=== PATIENT | male | born 1945 | race Caucasian/White ===

== ENCOUNTER 2016-05-15 14:26 | Inpatient (IN) | payer OTHER, MEDICARE ==
[~2016-05-15] VITALS: Ht 177.8 cm; Wt 163.7 kg
[~2016-05-15 14:26] MED LIST: ASPIRIN EC325 M1 PO; CATAPRES0.1 MG PO; FISH OIL CONC1 EACH PO; HYDROCHLOROTHIA25 MG PO; LASIX40 MG PO; METOPROLOL TART50 MG PO; MICRO-K,K-DUR,10 MEQ PO; NORVASC10 MG PO; PREVACID30 MG PO; SIMVASTATIN80 MG PO; ZESTRIL,PRINIVI40 MG PO; ZOLOFT50 MG PO
[2016-05-15 15:04] LABS: EOSINOPHIL (%) 1.5 % (0-5); EOSINOPHIL COUNT 0.2 K/uL (0-0.3); HEMATOCRIT 38.1 % (38.0-50.0); IMMATURE GRANULOCYTE (%) 1.1 % (0.0-0.7); IMMATURE GRANULOCYTE COUNT 1.2 K/uL; LYMPHOCYTE COUNT 1.2 K/uL (1.0-2.8); MCHC 35.4 G/DL (30.0-36.0); MCV 84.7 FL (86-99); MEAN PLAT.VOLUME 7.9 uM^3 (9.0-12.4); MONOCYTE (%) 4.7 % (3-12); MONOCYTE COUNT 0.5 K/uL (0-0.8); NEUTROPHIL (%) 81.9 % (45-76); NEUTROPHIL COUNT 9.3 K/uL (1.8-6.4); PLATELET COUNT 179 K/uL (156-360); RBC DIS.WIDTH-CV 13.3 % (11.8-14.6); RBC DIS.WIDTH-SD 39.8 % (39-53); WHITE BLOOD COUNT 11.4 K/uL (4.1-10.2)
[2016-05-15 15:20] LABS: PROTHROMBIN TIME 10.3 (9.2-11.2)
[2016-05-15 15:21] LABS: CHLORIDE 100 mEq/L (99-109); POTASSIUM 4.6 mEq/L (3.7-5.4); SODIUM 137 mEq/L (136-147)
[2016-05-15 15:25] LABS: ANION GAP 13 MEQ/L (2-14)
[2016-05-15 15:26] LABS: TOTAL BILIRUBIN 0.8 mg/dL (0.0-1.0)
[2016-05-15 15:27] LABS: ALKALINE PHOSPHATASE 115 IU/L (3-129); GFR ESTIMATE (CALCULATED) 46 mL/min/
[2016-05-15 15:28] LABS: UREA NITROGEN (BUN) 22 mg/dL (9-23)
[2016-05-15 15:31] LABS: TROP-I INTERPRETATION NEGATIVE; TROPONIN-I < 0.01 ng/mL (0.0-0.30)
[2016-05-15 15:49] LABS: GLUCOSE 473 mg/dL (70-99)
[2016-05-15] MEDS ORDERED: LIPITOR40 MG PO (17:55)
[2016-05-15] MEDS ORDERED: LOW DOSE ASPIRI81 M1 PO (17:56)
[2016-05-15] MEDS ORDERED: PANTOPRAZOLE SO40 MG PO (17:57)
[2016-05-15] MEDS ORDERED: POTASSIUM CHLO10 MEQ PO (17:58)
[2016-05-15] MEDS ORDERED: LOPRESSOR50 MG PO (17:59)
[2016-05-15] MEDS ORDERED: ZOLOFT100 MG PO (18:00)
[2016-05-15] MEDS ORDERED: ZESTRIL40 MG PO (18:01)
[2016-05-15] MEDS ORDERED: HYDROCHLOROTHIA25 MG PO (18:02)
[2016-05-15] MEDS ORDERED: NORVASC10 MG PO (18:04)
[2016-05-15] MEDS ORDERED: ZYLOPRIM300 MG PO (18:05)
[2016-05-15] MEDS ORDERED: VITAMIN D-32000 UNI2 PO (18:06)
[2016-05-15] MEDS ORDERED: IRON325 M1 PO (18:07)
[2016-05-15] MEDS ORDERED: GLUCOSAMINE-CH480 ML PO (18:09)
[2016-05-15 18:42] LABS: POINT-OF-CARE METER ID UU14100415
[2016-05-15] MEDS ORDERED: LANTUS 10100 UNITS/ SC (19:17)
[2016-05-15 19:40] LABS: SAMPLE HEMOLYSIS CHECK 0; SAMPLE ICTERIC CHECK 0; SAMPLE LIPEMIA CHECK 0
[2016-05-15 19:46] LABS: HDL CHOLESTEROL 41 MG/DL (Desirable>=40); LDL CHOLESTEROL 69 mg/dL (Desirable<100); NON-HDL CHOLESTEROL 92 mg/dL (Desirable<160); TOTAL CHOLESTEROL 133 mg/dL (Desirable<200); TRIGLYCERIDES 113 MG/DL (Normal: <150)
[2016-05-15 21:32] LABS: Estimated Average Glucose 369 mg/dL (70-123); HEMOGLOBIN A1c (GLYCOHEMOGLOB) 14.5 % HGB (Below 5.7)
[2016-05-15 21:52] VITALS: BP 143/80
[2016-05-15 22:15] LABS: POINT-OF-CARE METER ID UU14149398
[2016-05-16 00:01] VITALS: BP 162/76
[2016-05-16 03:45] VITALS: BP 158/74
[2016-05-16 04:08] LABS: POINT-OF-CARE METER ID UU14149398
[2016-05-16 05:54] LABS: HEMATOCRIT 35.4 % (38.0-50.0); MCH 29.2 PG (29.0-34.0); MCHC 33.9 G/DL (30.0-36.0); MCV 86.1 FL (86-99); MEAN PLAT.VOLUME 8.7 uM^3 (9.0-12.4); PLATELET COUNT 138 K/uL (156-360); RBC DIS.WIDTH-CV 13.6 % (11.8-14.6); RBC DIS.WIDTH-SD 42.6 % (39-53); RED BLOOD COUNT 4.11 M/uL (4.00-5.50); WHITE BLOOD COUNT 10.3 K/uL (4.1-10.2)
[2016-05-16 06:00] LABS: ALKALINE PHOSPHATASE 86 IU/L (3-129); ANION GAP 10 MEQ/L (2-14); CHLORIDE 102 MEQ/L (99-109); GFR ESTIMATE (CALCULATED) > 59 mL/min/; GLUCOSE 278 mg/dL (70-99); POTASSIUM 4.1 MEQ/L (3.7-5.4); SAMPLE HEMOLYSIS CHECK 0; SAMPLE ICTERIC CHECK 0; SAMPLE LIPEMIA CHECK 0; SODIUM 136 MEQ/L (136-147); TOTAL BILIRUBIN 0.7 MG/DL (0.0-1.0); UREA NITROGEN (BUN) 21 mg/dL (9-23)
[2016-05-16 07:53] VITALS: BP 165/85
[2016-05-16 08:54] LABS: POINT-OF-CARE METER ID UU14149398
[2016-05-16 12:54] LABS: POINT-OF-CARE METER ID UU14149398
[2016-05-16 16:16] VITALS: BP 159/80
[2016-05-16 17:55] LABS: POINT-OF-CARE METER ID UU14149398
[2016-05-16 19:30] VITALS: BP 141/83
[2016-05-16 21:01] LABS: POINT-OF-CARE METER ID UU14149398
[2016-05-16 23:50] VITALS: BP 176/84
[2016-05-17 03:22] LABS: POINT-OF-CARE METER ID UU14149398
[2016-05-17 03:40] VITALS: BP 173/82
[2016-05-17 06:13] LABS: HEMATOCRIT 35.6 % (38.0-50.0); MCH 28.4 PG (29.0-34.0); MCHC 33.1 G/DL (30.0-36.0); MCV 85.6 FL (86-99); MEAN PLAT.VOLUME 8.4 uM^3 (9.0-12.4); PLATELET COUNT 135 K/uL (156-360); RBC DIS.WIDTH-CV 13.4 % (11.8-14.6); RBC DIS.WIDTH-SD 41.5 % (39-53); RED BLOOD COUNT 4.16 M/uL (4.00-5.50); WHITE BLOOD COUNT 9.7 K/uL (4.1-10.2)
[2016-05-17 06:36] LABS: ANION GAP 9 MEQ/L (2-14); CHLORIDE 103 MEQ/L (99-109); GFR ESTIMATE (CALCULATED) > 59 mL/min/; GLUCOSE 151 mg/dL (70-99); POTASSIUM 3.8 MEQ/L (3.7-5.4); SAMPLE HEMOLYSIS CHECK 0; SAMPLE ICTERIC CHECK 0; SAMPLE LIPEMIA CHECK 0; SODIUM 139 MEQ/L (136-147); UREA NITROGEN (BUN) 19 mg/dL (9-23)
[2016-05-17 08:47] VITALS: BP 157/92
[2016-05-17 08:57] LABS: POINT-OF-CARE METER ID UU14149398; POINT-OF-CARE USER ID 606021404
[2016-05-17 11:32] VITALS: BP 129/64
[2016-05-17 12:23] LABS: POINT-OF-CARE METER ID UU13113807; POINT-OF-CARE USER ID 606021404
[2016-05-17 17:07] LABS: POINT-OF-CARE METER ID UU13113807; POINT-OF-CARE USER ID 606021404
[2016-05-17 20:02] VITALS: BP 151/77
[2016-05-17 21:09] LABS: POINT-OF-CARE METER ID UU14149398
[2016-05-17 23:55] VITALS: BP 155/74
[2016-05-18 03:06] LABS: POINT-OF-CARE METER ID UU14149398
[2016-05-18 03:34] VITALS: BP 139/74
[2016-05-18 05:58] LABS: HEMATOCRIT 35.3 % (38.0-50.0); MCH 28.1 PG (29.0-34.0); MCHC 32.9 G/DL (30.0-36.0); MCV 85.5 FL (86-99); MEAN PLAT.VOLUME 8.6 uM^3 (9.0-12.4); PLATELET COUNT 139 K/uL (156-360); RBC DIS.WIDTH-CV 13.4 % (11.8-14.6); RBC DIS.WIDTH-SD 41.4 % (39-53); RED BLOOD COUNT 4.13 M/uL (4.00-5.50); WHITE BLOOD COUNT 8.9 K/uL (4.1-10.2)
[2016-05-18 06:24] LABS: ANION GAP 8 MEQ/L (2-14); CHLORIDE 105 MEQ/L (99-109); GFR ESTIMATE (CALCULATED) > 59 mL/min/; GLUCOSE 147 mg/dL (70-99); POTASSIUM 3.8 MEQ/L (3.7-5.4); SAMPLE HEMOLYSIS CHECK 0; SAMPLE ICTERIC CHECK 0; SAMPLE LIPEMIA CHECK 0; SODIUM 138 MEQ/L (136-147); UREA NITROGEN (BUN) 18 mg/dL (9-23)
[2016-05-18 09:16] LABS: POINT-OF-CARE METER ID UU14149398; POINT-OF-CARE USER ID 606021404
[2016-05-18 11:57] LABS: POINT-OF-CARE METER ID UU14149398
[2016-05-18 11:59] VITALS: BP 161/76
[2016-05-18 16:00] VITALS: BP 145/75
[2016-05-18 16:53] LABS: POINT-OF-CARE METER ID UU14149398; POINT-OF-CARE USER ID 606021404
[2016-05-18 19:57] VITALS: BP 139/71
[2016-05-18 22:21] LABS: POINT-OF-CARE METER ID UU14149398
[2016-05-19] VITALS (7 sets, daily range): BP systolic 148–187; BP diastolic 79–96
[2016-05-19 03:23] LABS: POINT-OF-CARE METER ID UU13113807
[2016-05-19 07:26] LABS: EOSINOPHIL COUNT 0.1 K/uL (0-0.3); HEMATOCRIT 36.4 % (38.0-50.0); IMMATURE GRANULOCYTE (%) 1.7 % (0.0-0.7); IMMATURE GRANULOCYTE COUNT 0.2 K/uL; LYMPHOCYTE COUNT 1.6 K/uL (1.0-2.8); MCH 28.5 PG (29.0-34.0); MCV 86.5 FL (86-99); MEAN PLAT.VOLUME 8.3 uM^3 (9.0-12.4); MONOCYTE (%) 6.7 % (3-12); MONOCYTE COUNT 0.6 K/uL (0-0.8); NEUTROPHIL (%) 72.7 % (45-76); NEUTROPHIL COUNT 6.7 K/uL (1.8-6.4); PLATELET COUNT 124 K/uL (156-360); RBC DIS.WIDTH-CV 13.5 % (11.8-14.6); RBC DIS.WIDTH-SD 42.1 % (39-53); RED BLOOD COUNT 4.21 M/uL (4.00-5.50); WHITE BLOOD COUNT 9.2 K/uL (4.1-10.2)
[2016-05-19 07:51] LABS: ANION GAP 8 MEQ/L (2-14); CHLORIDE 106 MEQ/L (99-109); GFR ESTIMATE (CALCULATED) 54 mL/min/; GLUCOSE 152 mg/dL (70-99); POTASSIUM 4.2 MEQ/L (3.7-5.4); SAMPLE HEMOLYSIS CHECK 0; SAMPLE ICTERIC CHECK 0; SAMPLE LIPEMIA CHECK 0; SODIUM 141 MEQ/L (136-147); UREA NITROGEN (BUN) 20 mg/dL (9-23)
[2016-05-19 08:23] LABS: POINT-OF-CARE METER ID UU13113807
[2016-05-19 12:49] LABS: POINT-OF-CARE METER ID UU13113807
[2016-05-19 16:20] LABS: POINT-OF-CARE METER ID UU13113807
[2016-05-19 22:08] LABS: POINT-OF-CARE METER ID UU13113807
[2016-05-20 03:32] LABS: POINT-OF-CARE METER ID UU13113807
[2016-05-20 04:20] VITALS: BP 146/74
[2016-05-20 06:40] LABS: ANION GAP 8 MEQ/L (2-14); CHLORIDE 105 MEQ/L (99-109); GFR ESTIMATE (CALCULATED) > 59 mL/min/; GLUCOSE 162 mg/dL (70-99); POTASSIUM 3.8 MEQ/L (3.7-5.4); SAMPLE HEMOLYSIS CHECK 0; SAMPLE ICTERIC CHECK 0; SAMPLE LIPEMIA CHECK 0; SODIUM 140 MEQ/L (136-147); UREA NITROGEN (BUN) 17 mg/dL (9-23)
[2016-05-20 08:36] VITALS: BP 179/87
[2016-05-20 08:46] LABS: POINT-OF-CARE METER ID UU13113807; POINT-OF-CARE USER ID 606021404
[2016-05-20 11:15] VITALS: BP 136/72
[2016-05-20 12:17] LABS: POINT-OF-CARE METER ID UU13113807; POINT-OF-CARE USER ID 606021404
[2016-05-20 16:31] VITALS: BP 156/74
[2016-05-20 16:43] LABS: POINT-OF-CARE METER ID UU13113807; POINT-OF-CARE USER ID 606021404
[2016-05-20 20:43] VITALS: BP 178/80
[2016-05-20 21:49] LABS: POINT-OF-CARE METER ID UU13113807
[2016-05-20 23:13] VITALS: BP 159/72
[2016-05-21 03:25] LABS: POINT-OF-CARE METER ID UU13113807
[2016-05-21 04:03] VITALS: BP 149/74
[2016-05-21 07:00] VITALS: BP 174/87
[2016-05-21 08:05] LABS: POINT-OF-CARE METER ID UU13113807
[2016-05-21 11:39] VITALS: BP 141/74
[2016-05-21 12:06] LABS: POINT-OF-CARE METER ID UU13113807
[2016-05-21] MEDS ORDERED: CLONIDINE HCL0.2 MG PO (13:21)
[2016-05-21 15:32] VITALS: BP 147/78
== END 2016-05-21 16:00 | DRG 64 ==
LOC: EME 14:26 → 4SOUTH 18:09 → EDOF 18:09 → 4SOUTH 21:37
PROVIDERS: Emergency Medicine; Hospitalist; Internal Medicine; Physician Assistant
DX: I63.9 Cerebral infarction, unspecified (principal); I62.1 Nontraumatic extradural hemorrhage; N17.9 Acute kidney failure, unspecified; G81.91 Hemiplegia, unspecified affecting right dominant side; Z68.43 Body mass index [BMI] 50.0-59.9, adult; F33.9 Major depressive disorder, recurrent, unspecified; E66.01 Morbid (severe) obesity due to excess calories; I51.7 Cardiomegaly; I25.10 Atherosclerotic heart disease of native coronary artery without angina pectoris; I10 Essential (primary) hypertension; E78.00 Pure hypercholesterolemia, unspecified; E11.65 Type 2 diabetes mellitus with hyperglycemia; I89.0 Lymphedema, not elsewhere classified; I67.2 Cerebral atherosclerosis; I65.22 Occlusion and stenosis of left carotid artery; J39.2 Other diseases of pharynx; M48.06 Spinal stenosis, lumbar region; M51.16 Intervertebral disc disorders with radiculopathy, lumbar region; Z79.4 Long term (current) use of insulin; Z95.5 Presence of coronary angioplasty implant and graft; Z91.81 History of falling; Z91.013 Allergy to seafood; Z88.0 Allergy status to penicillin; Z82.49 Family history of ischemic heart disease and other diseases of the circulatory system; Z80.41 Family history of malignant neoplasm of ovary
CPT/HCPCS: 70450; 70551; 72148; 80048; 80053; 80061; 81003; 82043; 82570; 82948; 83036; 84484; 85025; 85027; 85610; 85730; 93005; 93880; 99281; 99285; G0008; J1644; J1815; J2270; J7030; J7040

== ENCOUNTER 2017-04-24 01:58 | Inpatient (IN) | payer OTHER, MEDICARE ==
[~2017-04-24] VITALS: Ht 177.8 cm; Wt 154.7 kg
[~2017-04-24 01:58] MED LIST changes: +CLONIDINE HCL0.2 MG PO; +GLUCOSAMINE-CH480 ML PO; +IRON325 M1 PO; +LANTUS 10100 UNITS/ SC; +LIPITOR40 MG PO; +LOPRESSOR50 MG PO; +LOW DOSE ASPIRI81 M1 PO; +PANTOPRAZOLE SO40 MG PO; +POTASSIUM CHLO10 MEQ PO; +VITAMIN D-32000 UNI2 PO; +ZESTRIL40 MG PO; +ZOLOFT100 MG PO; +ZYLOPRIM300 MG PO
[2017-04-24 02:40] LABS: HEMATOCRIT 40.5 % (38.0-50.0); HEMOGLOBIN 13.6 G/DL (12.5-16.6); MCH 28.9 PG (29.0-34.0); MCHC 33.6 G/DL (30.0-36.0); PLATELET COUNT 118 K/uL (156-360); RBC DIS.WIDTH-CV 13.9 % (11.8-14.6); RBC DIS.WIDTH-SD 43.6 % (39-53); RED BLOOD COUNT 4.71 M/uL (4.00-5.50); WHITE BLOOD COUNT 18.1 K/uL (4.1-10.2)
[2017-04-24 02:43] LABS: BASE EXCESS 0.7 mEq/L (-3 to +3); BICARBONATE 25.4 mEq/L (22-26); CARBOXY HGB 2.7 % (0-5); METHEMOGLOBIN 1.2 % (0-1.5); PCO2 40 mm Hg (35-45); PO2 122 mm Hg (80-100); pH 7.41 (7.35-7.45)
[2017-04-24 02:44] LABS: COMMENTS - BLOOD GASES C+; DEVICE MASKVENT; FI02 80 %; MODE NPONT; PEEP 5 CM/H20; PRES. SUPPORT 12 CM/H2O; SITE RR; TOTAL RESP RATE 20 resp/min
[2017-04-24 02:51] LABS: ALBUMIN 3.1 g/dL (3.2-4.8); CHLORIDE 102 mEq/L (99-109); POTASSIUM 3.9 mEq/L (3.7-5.4); SODIUM 139 mEq/L (136-147)
[2017-04-24 02:54] LABS: GLUCOSE 197 mg/dL (70-99); TOTAL PROTEIN 6.8 g/dL (6.4-8.3)
[2017-04-24 02:56] LABS: TOTAL BILIRUBIN 1.1 mg/dL (0.0-1.0)
[2017-04-24 02:57] LABS: ALKALINE PHOSPHATASE 121 IU/L (3-129); CREATININE 1.6 mg/dL (0.6-1.3); GFR ESTIMATE (CALCULATED) 46 mL/min/ (58.99-99999)
[2017-04-24 02:58] LABS: UREA NITROGEN (BUN) 18 mg/dL (9-23)
[2017-04-24 02:59] LABS: AST (GOT) 26 IU/L (2-34)
[2017-04-24 03:00] LABS: TROP-I INTERPRETATION POSITIVE; TROPONIN-I 1.42 ng/mL (0.0-0.30)
[2017-04-24 03:00] LABS: ALT (GPT) 24 IU/L (3-49)
[2017-04-24 09:02] LABS: INTER. NORMALIZED RATIO 1.2
[2017-04-24 09:17] LABS: TROP-I INTERPRETATION POSITIVE
[2017-04-24 09:37] LABS: TROPONIN-I 4.65 ng/mL (0.0-0.30)
[2017-04-24 09:49] LABS: HDL CHOLESTEROL 50 MG/DL (Desirable>=40); LDL CHOLESTEROL 84 mg/dL (Desirable<100); NON-HDL CHOLESTEROL 104 mg/dL (Desirable<160); TOTAL CHOLESTEROL 154 mg/dL (Desirable<200); TRIGLYCERIDES 102 MG/DL (Normal: <150)
[2017-04-24 10:15] VITALS: BP 163/104
[2017-04-24 11:15] VITALS: BP 186/89
[2017-04-24] MEDS ORDERED: FUROSEMIDE40 MG PO (12:15)
[2017-04-24] MEDS ORDERED: FLOMAX0.4 MG PO (12:15)
[2017-04-24] MEDS ORDERED: MAGNESIUM250 MG PO (12:16)
[2017-04-24] MEDS ORDERED: B-COMPLEX-VITA1 EACH PO (12:16)
[2017-04-24] MEDS ORDERED: CATAPRES0.1 MG PO (14:57)
[2017-04-24 15:38] LABS: TROP-I INTERPRETATION POSITIVE; TROPONIN-I 3.68 ng/mL (0.0-0.30)
[2017-04-24 15:55] VITALS: BP 178/81
[2017-04-24 17:58] LABS: Estimated Average Glucose 131 mg/dL (70-123); HEMOGLOBIN A1c (GLYCOHEMOGLOB) 6.2 % HGB (Below 5.7)
[2017-04-24 19:25] VITALS: BP 160/90
[2017-04-25 00:05] VITALS: BP 158/80
[2017-04-25 03:57] VITALS: BP 166/86
[2017-04-25 05:33] LABS: HEMATOCRIT 35.1 % (38.0-50.0); HEMOGLOBIN 11.7 G/DL (12.5-16.6); MCH 28.5 PG (29.0-34.0); MCHC 33.3 G/DL (30.0-36.0); MCV 85.4 FL (86-99); PLATELET COUNT 148 K/uL (156-360); RBC DIS.WIDTH-CV 13.8 % (11.8-14.6); RBC DIS.WIDTH-SD 42.8 % (39-53); RED BLOOD COUNT 4.11 M/uL (4.00-5.50); WHITE BLOOD COUNT 18.6 K/uL (4.1-10.2)
[2017-04-25 05:56] LABS: CHLORIDE 99 MEQ/L (99-109); CREATININE 1.6 MG/DL (0.6-1.3); GFR ESTIMATE (CALCULATED) 46 mL/min/ (58.99-99999); GLUCOSE 142 mg/dL (70-99); POTASSIUM 3.7 MEQ/L (3.7-5.4); SODIUM 136 MEQ/L (136-147); UREA NITROGEN (BUN) 23 mg/dL (9-23)
[2017-04-25 07:44] VITALS: BP 170/85
[2017-04-25 11:18] VITALS: BP 186/95
[2017-04-25 17:31] VITALS: BP 151/73
[2017-04-25 19:45] VITALS: BP 169/77
[2017-04-26 00:34] VITALS: BP 140/82
[2017-04-26 02:23] LABS: CHLORIDE 98 mEq/L (99-109); POTASSIUM 3.6 mEq/L (3.7-5.4); SODIUM 137 mEq/L (136-147)
[2017-04-26 02:24] LABS: GLUCOSE 149 mg/dL (70-99)
[2017-04-26 02:28] LABS: CREATININE 1.5 mg/dL (0.6-1.3); GFR ESTIMATE (CALCULATED) 49 mL/min/ (58.99-99999)
[2017-04-26 02:29] LABS: UREA NITROGEN (BUN) 26 mg/dL (9-23)
[2017-04-26 03:19] VITALS: BP 130/80
[2017-04-26 08:19] VITALS: BP 179/95
[2017-04-26 18:00] VITALS: BP 178/76
[2017-04-26 20:00] VITALS: BP 141/71
[2017-04-27 00:10] VITALS: BP 117/75
[2017-04-27 03:10] VITALS: BP 128/62
[2017-04-27 05:25] LABS: HEMOGLOBIN 9.9 G/DL (12.5-16.6); MCH 28.4 PG (29.0-34.0); MCV 86.2 FL (86-99); PLATELET COUNT 164 K/uL (156-360); RBC DIS.WIDTH-CV 13.9 % (11.8-14.6); RBC DIS.WIDTH-SD 43.7 % (39-53); RED BLOOD COUNT 3.48 M/uL (4.00-5.50); WHITE BLOOD COUNT 16.8 K/uL (4.1-10.2)
[2017-04-27 05:49] LABS: CHLORIDE 98 MEQ/L (99-109); CREATININE 1.9 MG/DL (0.6-1.3); GFR ESTIMATE (CALCULATED) 38 mL/min/ (58.99-99999); GLUCOSE 122 mg/dL (70-99); MAGNESIUM 1.9 mg/dl (1.3-2.7); POTASSIUM 3.7 MEQ/L (3.7-5.4); SODIUM 137 MEQ/L (136-147); UREA NITROGEN (BUN) 30 mg/dL (9-23)
[2017-04-27 07:17] VITALS: BP 179/75
[2017-04-27 11:36] VITALS: BP 146/70
[2017-04-27 17:12] VITALS: BP 171/77
[2017-04-27 21:15] VITALS: BP 179/81
[2017-04-28] VITALS (7 sets, daily range): BP systolic 136–161; BP diastolic 62–88
[2017-04-28 05:43] LABS: HEMATOCRIT 27.3 % (38.0-50.0); HEMOGLOBIN 9.1 G/DL (12.5-16.6); MCH 28.6 PG (29.0-34.0); MCHC 33.3 G/DL (30.0-36.0); MCV 85.8 FL (86-99); PLATELET COUNT 170 K/uL (156-360); RBC DIS.WIDTH-CV 13.9 % (11.8-14.6); RBC DIS.WIDTH-SD 43.5 % (39-53); RED BLOOD COUNT 3.18 M/uL (4.00-5.50); WHITE BLOOD COUNT 14.9 K/uL (4.1-10.2)
[2017-04-28 06:05] LABS: CHLORIDE 97 MEQ/L (99-109); CREATININE 2.1 MG/DL (0.6-1.3); GFR ESTIMATE (CALCULATED) 33 mL/min/ (58.99-99999); GLUCOSE 117 mg/dL (70-99); POTASSIUM 3.6 MEQ/L (3.7-5.4); SODIUM 135 MEQ/L (136-147); UREA NITROGEN (BUN) 34 mg/dL (9-23)
[2017-04-29 04:13] VITALS: BP 136/63
[2017-04-29 05:05] LABS: HEMATOCRIT 26.3 % (38.0-50.0); HEMOGLOBIN 8.8 G/DL (12.5-16.6); MCH 28.7 PG (29.0-34.0); MCHC 33.5 G/DL (30.0-36.0); MCV 85.7 FL (86-99); PLATELET COUNT 172 K/uL (156-360); RBC DIS.WIDTH-CV 14.3 % (11.8-14.6); RBC DIS.WIDTH-SD 43.8 % (39-53); RED BLOOD COUNT 3.07 M/uL (4.00-5.50); WHITE BLOOD COUNT 15.5 K/uL (4.1-10.2)
[2017-04-29 05:31] LABS: CHLORIDE 96 MEQ/L (99-109); CREATININE 2.1 MG/DL (0.6-1.3); GFR ESTIMATE (CALCULATED) 33 mL/min/ (58.99-99999); GLUCOSE 144 mg/dL (70-99); POTASSIUM 4.2 MEQ/L (3.7-5.4); SODIUM 133 MEQ/L (136-147); UREA NITROGEN (BUN) 33 mg/dL (9-23)
[2017-04-29 08:30] VITALS: BP 139/61
[2017-04-29 11:05] LABS: IRON 42 MCG/DL (35-150); TRANSFERRIN (TIBC) 172.2 mg/dL (215-380); TRANSFERRIN SATUR. 24 % (20-55)
[2017-04-29 11:20] LABS: FERRITIN 149 NG/ML (22-322)
[2017-04-29 12:15] VITALS: BP 136/77
[2017-04-29 16:25] VITALS: BP 149/73
[2017-04-29 19:42] VITALS: BP 134/63
[2017-04-29 23:48] VITALS: BP 130/61
[2017-04-30 04:00] VITALS: BP 141/68
[2017-04-30 06:34] LABS: HEMOGLOBIN 8.9 G/DL (12.5-16.6); MCH 28.2 PG (29.0-34.0); MCV 85.4 FL (86-99); PLATELET COUNT 169 K/uL (156-360); RBC DIS.WIDTH-CV 14.4 % (11.8-14.6); RBC DIS.WIDTH-SD 44.4 % (39-53); RED BLOOD COUNT 3.16 M/uL (4.00-5.50); WHITE BLOOD COUNT 17.4 K/uL (4.1-10.2)
[2017-04-30 07:07] LABS: CHLORIDE 97 MEQ/L (99-109); GFR ESTIMATE (CALCULATED) 35 mL/min/ (58.99-99999); GLUCOSE 124 mg/dL (70-99); POTASSIUM 4.3 MEQ/L (3.7-5.4); SODIUM 132 MEQ/L (136-147); UREA NITROGEN (BUN) 31 mg/dL (9-23)
[2017-04-30 09:00] VITALS: BP 160/72
[2017-04-30] MEDS ORDERED: LEVOFLOXACIN750 MG PO (10:13)
[2017-04-30] MEDS ORDERED: CLOPIDOGREL75 MG PO (10:14)
[2017-04-30] MEDS ORDERED: NITROSTAT0.4 MG SL (10:17)
[2017-04-30] MEDS ORDERED: LABETALOL HCL200 MG PO (10:18)
[2017-04-30] MEDS ORDERED: HYDRALAZINE HCL25 MG PO (10:18)
[2017-04-30] MEDS ORDERED: LASIX40 MG PO (10:26)
[2017-04-30] MEDS ORDERED: POLYETHYLENE GL17 GM PO (10:29)
[2017-04-30] MEDS ORDERED: DOCUSATE SODIU100 MG PO (10:29)
[2017-04-30] MEDS ORDERED: VENTOLIN HFA18 GM IH (10:34)
[2017-04-30] MEDS ORDERED: ATROVENT H200 INHALA IH (10:34)
[2017-04-30 12:00] VITALS: BP 134/62
== END 2017-04-30 14:27 | disposition home health service (06) | DRG 250 ==
LOC: EME 01:58 → EDOF 08:11 → 4EAST 08:11 → ENRESERV 08:15 → EDOF 08:17 → ENRESERV 08:47 → 4EAST 09:43
PROVIDERS: Emergency Medicine; Hospitalist; Internal Medicine
DX: T82.857A Stenosis of other cardiac prosthetic devices, implants and grafts, initial encounter (principal); I21.4 Non-ST elevation (NSTEMI) myocardial infarction; I50.33 Acute on chronic diastolic (congestive) heart failure; J81.0 Acute pulmonary edema; J18.9 Pneumonia, unspecified organism; Z68.43 Body mass index [BMI] 50.0-59.9, adult; I25.810 Atherosclerosis of coronary artery bypass graft(s) without angina pectoris; I16.1 Hypertensive emergency; I69.359 Hemiplegia and hemiparesis following cerebral infarction affecting unspecified side; I13.0 Hypertensive heart and chronic kidney disease with heart failure and stage 1 through stage 4 chronic kidney disease, or unspecified chronic kidney disease; N17.9 Acute kidney failure, unspecified; E66.01 Morbid (severe) obesity due to excess calories; I25.82 Chronic total occlusion of coronary artery; E11.22 Type 2 diabetes mellitus with diabetic chronic kidney disease; N14.1 Nephropathy induced by other drugs, medicaments and biological substances; N18.9 Chronic kidney disease, unspecified; K21.9 Gastro-esophageal reflux disease without esophagitis; K59.00 Constipation, unspecified; E78.5 Hyperlipidemia, unspecified; E78.01 Familial hypercholesterolemia; I44.7 Left bundle-branch block, unspecified; Z73.6 Limitation of activities due to disability; I89.0 Lymphedema, not elsewhere classified; M48.061 Spinal stenosis, lumbar region without neurogenic claudication; M54.16 Radiculopathy, lumbar region; R32 Unspecified urinary incontinence; G89.29 Other chronic pain; M54.9 Dorsalgia, unspecified; Z88.0 Allergy status to penicillin; Z91.013 Allergy to seafood; T50.8X5A Adverse effect of diagnostic agents, initial encounter; Z79.82 Long term (current) use of aspirin; Z79.4 Long term (current) use of insulin; Z82.49 Family history of ischemic heart disease and other diseases of the circulatory system; Z95.5 Presence of coronary angioplasty implant and graft; Z99.81 Dependence on supplemental oxygen; Z80.41 Family history of malignant neoplasm of ovary
CPT/HCPCS: 36600; 71010; 71045; 80048; 80053; 80061; 82728; 82803; 82948; 83036; 83540; 83605; 83735; 83880; 84466; 84484; 85027; 85347; 85379; 85610; 85730; 87040; 87502; 87641; 93005; 94002; 94640; 94640 76; 94760; 94799; 99202; 99281; 99285; C1769; C1874; C1887; C1894; J0153; J0360; J0461; J0583; J1644; J1815; J1940; J1956; J2250; J3010; J7644